=== PATIENT | female | born 1975 | race Caucasian/White ===

== ENCOUNTER 2021-06-19 16:33 | Emergency (ER) | payer MEDICARE ==
[2021-06-19 18:42] LABS: RED BLOOD COUNT 4.83 M/UL (4.00-5.10); WHITE BLOOD COUNT 11.1 K/UL (4.5-11.0)
[2021-06-19 19:01] LABS: BUN/CREATININE RATIO 14 (0-10)
== END 2021-06-19 21:12 | disposition home or self-care (01) ==
LOC: ER1 16:33
PROVIDERS: Physician Assistant Medical
DX: S22.31XA Fracture of one rib, right side, initial encounter for closed fracture (principal); S00.83XA Contusion of other part of head, initial encounter; W22.8XXA Striking against or struck by other objects, initial encounter; Z88.5 Allergy status to narcotic agent
CPT/HCPCS: 70486; 71111; 73562; 80053; 85025; 96374; 99284; J1885; Q9967